=== PATIENT | female | born 1960 | race Caucasian/White ===

== ENCOUNTER 2020-05-26 09:01 | Emergency (ER) | payer MEDICARE ==
[2020-05-26 10:27] LABS: HEMOGLOBIN 14.4 gm/dl (12.3-15.3); RED BLOOD COUNT 4.85 M/UL (4.00-5.10); WHITE BLOOD COUNT 9.1 K/UL (4.5-11.0)
[2020-05-26 10:47] LABS: BUN/CREATININE RATIO 11 (0-10)
[2020-05-26] MEDS ORDERED: LOMOTIL 2.5-0.1 EACH PO (12:40)
== END 2020-05-26 12:50 | disposition home or self-care (01) ==
LOC: ER1 09:01
PROVIDERS: Emergency Medicine
DX: K52.9 Noninfective gastroenteritis and colitis, unspecified (principal); D35.02 Benign neoplasm of left adrenal gland; Z20.822 Contact with and (suspected) exposure to COVID-19
CPT/HCPCS: 71045; 80053; 81001; 83690; 85025; 99285; Q9967; U0002